=== PATIENT | female | born 1950 | race Caucasian/White ===

== ENCOUNTER 2020-05-29 18:59 | Emergency (ER) | payer MEDICARE ==
[~2020-05-29] VITALS: Ht 157.5 cm; Wt 79.5 kg
[2020-05-29] MEDS ORDERED: LEVOTHYROXIN125 MC1 PO (19:25)
[2020-05-29] MEDS ORDERED: ATORVASTATIN CA10 MG PO (19:27)
[2020-05-29] MEDS ORDERED: ZYRTEC10 MG PO (19:27)
[2020-05-29] MEDS ORDERED: VOLTAREN75 MG PO (21:18)
[2020-05-29] MEDS ORDERED: TRAMADOL HYDROC50 MG PO (21:18)
[2020-05-29 21:45] VITALS: BP 151/63
== END 2020-05-29 21:45 | disposition home or self-care (01) ==
LOC: ED 18:59
DX: S82.62XA Displaced fracture of lateral malleolus of left fibula, initial encounter for closed fracture (principal); S90.512A Abrasion, left ankle, initial encounter; W17.2XXA Fall into hole, initial encounter; Y92.410 Unspecified street and highway as the place of occurrence of the external cause